=== PATIENT | female | born 1985 | race Caucasian/White ===

== ENCOUNTER 2023-06-10 17:44 | Emergency (ER) | payer SELFPAY ==
--- NOTE | 2023-06-10 17:50 | ED.GENADULT ---
HPI - General Adult General Chief complaint: Extremity Injury, Upper Stated complaint: Left Arm Swelling/Skin Sores Time Seen by Provider: 06/10/23 17:52 Source: patient, RN notes reviewed and old records reviewed Mode of arrival: ambulatory Limitations: no limitations History of Present Illness HPI narrative: 37-year-old female presents to the [facility] complaining of chest pain, multiple open wounds are not healing and left arm pain with redness and swelling for 3 weeks. Reports only history of drug use was back about a month ago she had mushrooms. Patient denying any IV drug use Onset (ago): week(s) (3) Treatments prior to arrival: none Related Data Home Medications Medication Instructions Recorded Confirmed No Home Medications 06/10/23 06/10/23 Allergies Allergy/AdvReac Type Severity Reaction Status Date / Time No Known Allergies Allergy Verified 06/10/23 18:33 Review of Systems Review of Systems: All systems reviewed & are unremarkable except as noted in HPI and below Constitutional: Constitutional: Reports no additional constitutional complaints Eyes: Eyes: Reports no additional eye complaints ENT: Reports system reviewed and no additional complaints, except as documented Cardiovascular: Cardiovascular: Reports no additional cardiovascular complaints, Denies chest pain and Denies dyspnea Respiratory: Respiratory: Reports no additional respiratory complaints, Denies chest congestion, Denies cough and Denies dyspnea Gastrointestinal: Gastrointestinal: Reports no additional gastrointestinal complaints, Denies abdominal pain, Denies nausea and Denies vomiting Musculoskeletal: Musculoskeletal: Reports as per HPI Integumentary/Breasts: Skin/Breast: Reports as per HPI and Reports wounds Neurologic: Reports system reviewed and no additional complaints, except as documented Psychiatric: Psychiatric: Reports as per HPI, Reports anxiety and Reports hopelessness Allergic/Immunologic: Allergic/Immunologic: Reports no additional allergic/immunologic complaints [facility] Past Medical History Medical History (Updated 06/10/23 @ 19:11 by Leona Dee APRN) Anxiety Social History Social History (Updated 06/10/23 @ 19:04 by Leona Dee APRN) Substance use: current Substance use type: heroin, amphetamines, IV drugs and methamphetamine Comments At the time of my signature, I reviewed and agree with the nursing past medical, surgical, social, and family history. There is no relevant family history pertinent to the patient complaint. Exam Const: General: cooperative, well developed, alert, acute distress moderate (pain), anxious, uncomfortable and well nourished Nutritional Appearance: well nourished Orientation/consciousness: oriented to person and oriented to place Limitations: no limitations HENMT: Head: normal to inspection Ears: hearing grossly normal bilaterally and external ears normal Face/Nose/Sinus: Normal external nose present, Normal nares present, Normal nasal mucous membranes and turbinates present and normal facial exam Face and sinus: normal facial exam Mouth: Yes lip normal Teeth and gingiva: abnormal tooth and associated gingiva, gingiva abnormal receding and poor dentition Eyes: General: appearance normal, both eyes and all related structures Alignment and Position: alignment normal Periorbital: periorbital findings normal Pupils: Equal, round and reactive pupils present EOM: EOMs intact bilaterally Neck: Neck: normal visual inspection, full ROM, no lymphadenopathy and no meningeal signs Chest: Chest palpation & inspection: normal inspection of the chest Resp: Effort & Inspection: normal respiratory effort and able to speak in complete sentences Auscultation: diminished lung sounds Cardio: Rate: tachycardic Rhythm: regular rhythm Back/Spine/Pelvis: Cervical Spine: cervical ROM normal Skin: General skin exam: normal color and no rashes or lesions noted Lesi
[2023-06-10 17:55] VITALS: BP 103/85; PULSE 120; RESP 28; TEMP 37.6; O2SAT 99
--- NOTE | 2023-06-10 19:31 | ECG_ITS ---
Measurements Intervals [place] Rate: 123 P: 44 ME: 126 QRS: 42 QRSD: 74 T: 46 QT: 289 QTc: 415 Interpretive Statements SINUS TACHYCARDIA ABNORMAL RHYTHM ECG NO PREVIOUS ECG AVAILABLE FOR COMPARISON Electronically Signed On 06-11-2023 8:51:54 CDT by Diogenes Rodas M.D.
== END 2023-06-10 18:00 | disposition short-term general hospital (02) ==
PROVIDERS: Emergency Provider Family Medicine
DX: L03.114 Cellulitis of left upper limb (principal); S51.802A Unspecified open wound of left forearm, initial encounter; S51.801A Unspecified open wound of right forearm, initial encounter; S81.802A Unspecified open wound, left lower leg, initial encounter; S81.801A Unspecified open wound, right lower leg, initial encounter; S21.002A Unspecified open wound of left breast, initial encounter; S21.001A Unspecified open wound of right breast, initial encounter; X58.XXXA Exposure to other specified factors, initial encounter
CPT/HCPCS: 93005; 99215; G0463

== ENCOUNTER 2023-06-24 13:32 | Emergency (ER) | payer SELFPAY ==
[2023-06-24 13:38] VITALS: BP 135/81; PULSE 93; RESP 20; TEMP 35.9; O2SAT 99
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
--- NOTE | 2023-06-24 14:38 | PC.NURSE ---
1435-- PT BECOMING AGITATED WHILE WAITING FOR HER RIDE. RN AGAIN ASSISTED PT WITH NOTIFYING BOYFRIEND FOR A RIDE TO [facility]. BOYFRIEND RETURNED CALL AND STATED SOMEONE IS ON THEIR WAY TO PICK PT UP. BOYFRIEND THEN HUNG UPON STAFF. RN WENT TO LET PT KNOW HER RIDE IS COMING. RN UNABLE TO FIND PT OUTSIDE. PT LEFT WITHOUT PAPERWORK TO TAKE TO [facility] ER.
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
== END 2023-06-24 14:15 | disposition short-term general hospital (02) ==
PROVIDERS: Emergency Provider Nurse Practitioner Family
DX: L03.114 Cellulitis of left upper limb (principal); F15.90 Other stimulant use, unspecified, uncomplicated; F11.90 Opioid use, unspecified, uncomplicated
CPT/HCPCS: 99212; G0463